=== PATIENT | male | born 1940 | race Caucasian/White ===

== ENCOUNTER 2017-03-21 15:58 | Emergency (ER) | payer OTHER, MEDICAID ==
[~2017-03-21] VITALS: Ht 165.1 cm; Wt 66.0 kg
--- NOTE | 2017-03-21 16:10 | NUR ---
AAOX3, BIB EMS C/O SYNCOPAL EPISODE AT HOME. SKIN IS WARM AND DRY. RESP IS EVEN AND UNLABORED WITH NAD NOTED. GENERALIZED WEAKNESS. ASSISTED TO HOSPITAL GOWN. PLACED ON MONITOR. DR CANCINO AT BS FOR EVAL.
[2017-03-21 16:23] LABS: BASOPHILS % (AUTO) 0.2 % (0.0-2.0); EOSINOPHILS # (AUTO) 0.1 /CMM (0.0-0.7); EOSINOPHILS % (AUTO) 0.8 % (0.0-6.0); HEMATOCRIT 43 % (39-51); HEMOGLOBIN 14.4 g/dL (13.5-17.5); LYMPHOCYTES # (AUTO) 0.4 /CMM (0.8-4.8); LYMPHOCYTES % (AUTO) 6.3 % (20.0-44.0); MEAN CORPUSCULAR HEMOGLOBIN 30 PG (26.0-33.0); MEAN CORPUSCULAR HGB CONC 34 g/dl (31.0-36.0); MEAN CORPUSCULAR VOLUME 88 fL (80-96); MONOCYTES # (AUTO) 0.5 /CMM (0.1-1.30); MONOCYTES % (AUTO) 7.2 % (2.0-12.0); NEUTROPHILS # (AUTO) 5.8 /CMM (1.8-8.9); NEUTROPHILS % (AUTO) 85.5 % (43.0-81.0); PLATELET COUNT (AUTO) 195 /CMM (150-450); RDW COEFFICIENT OF VARIATION 12.5 (11.5-15.0); RED BLOOD CELL COUNT(AUTO) 4.83 MIL/uL (4.5-6.0); WHITE BLOOD COUNT (AUTO) 6.8 K/uL (4.3-11.0)
[2017-03-21] MEDS ORDERED: IV NS 0.9% 500 ML BAG IV ONE (16:30)
[2017-03-21 16:33] LABS: CALCIUM, SERUM 9.1 mg/dL (8.5-10.1); CARBON DIOXIDE 26 mmol/L (21-32); CHLORIDE 98 mmol/L (98-107); CREATININE 0.7 mg/dL (0.6-1.3); GLUCOSE 283 mg/dL (74-106); POTASSIUM 4.2 mmol/L (3.5-5.1); SODIUM SERUM 134 mmol/L (136-145); UREA NITROGEN, BLOOD 11 mg/dL (7-18)
[2017-03-21 16:39] LABS: ALANINE AMINOTRANSFERASE 30 U/L (12-78); ALBUMIN 4.1 g/dL (3.4-5.0); ALCOHOL, BLOOD < 3 mg/dL (0-0); ALKALINE PHOSPHATASE 61 U/L (46-116); ASPARTATE AMINOTRANSFERASE 25 U/L (15-37); BILIRUBIN,DIRECT 0.2 mg/dL (0.0-0.2); BILIRUBIN,TOTAL 1.1 mg/dL (0.2-1.0); TOTAL PROTEIN, SERUM 7.7 g/dL (6.4-8.2)
[2017-03-21 16:41] LABS: TROPONIN I < 0.017 ng/mL (0.00-0.056)
[2017-03-21 16:55] LABS: SERUM AMMONIA 19 umol/L (11-32)
[2017-03-21 16:58] LABS: INR 1.09 (0.87-1.13); PROTHROMBIN TIME 11.3 SECS (9.5-12.7)
--- NOTE | 2017-03-21 17:10 | NUR ---
CALLING [facility] FOR TRANSFER
--- NOTE | 2017-03-21 17:16 | NUR ---
CEVALLOS WILL CALL BACK FOR REPORT
[2017-03-21 17:24] LABS: APPEARANCE,URINE CLEAR (CLEAR); BILIRUBIN,URINE NEGATIVE (NEGATIVE); BLOOD, URINE NEGATIVE Ery/uL (NEGATIVE); COLOR,URINE YELLOW (YELLOW); KETONES,URINE 2+ (NEGATIVE); LEUKOCYTE ESTERASE ,URINE NEGATIVE (NEGATIVE); NITRITE, URINE NEGATIVE (NEGATIVE); PH,URINE 7.5 (5.0-8.0); PROTEIN,URINE NEGATIVE (NEGATIVE); UGLUCOSE 3+ mg/dL (NEGATIVE); UROBILINOGEN,URINE 0.2 EU/dL (0.2)
[2017-03-21 17:30] LABS: THYROID STIMULATING HORMONE 0.801 uIU/mL (0.358-3.74)
[2017-03-21] MEDS ORDERED: INSULIN REGULAR, HUMAN 100 UNIT/ML 10 ML VIAL SQ ONE (17:30)
[2017-03-21 17:32] LABS: BACTERIA,URINE Rare /HPF (None Seen); RBC,URINE 0-2 /HPF (0-2); SQUAMOUS EPITHELIAL CELL,UR Few /HPF (None Seen)
[2017-03-21] MEDS ORDERED: INSULIN REGULAR, HUMAN 100 UNIT/ML 10 ML VIAL ONE (18:15)
--- NOTE | 2017-03-21 18:23 | NUR ---
INSULIN 6 UNITS GIVEN BY PRIMARY NURSE STEFAN. DOSE VERIFIED.
--- NOTE | 2017-03-21 19:16 | NUR ---
ASSUMED CARE. RECEIVED REPORT FROM AM SHIFT RN STEFAN. PT AAOX4 NO ACUTE DISTRESS NOTED, RESP EVEN AND UNLABORED. PT ON CARDIAC MONITORING, CONTINUOUS POX. PT AT BEDSIDE.
[2017-03-21] MEDS ORDERED: IV NS 0.9% 1,000 ML BAG IV ONE (19:30)
--- NOTE | 2017-03-21 20:10 | NUR ---
PATIENT BEING TRANSFERRED TO [facility] - ADMITTING DR ROSS [facility] ETA 2230 REPORT NUMBER [phone]
--- NOTE | 2017-03-21 20:30 | NUR ---
[facility] ETA 2100 PER [facility].
[2017-03-21 20:48] VITALS: BP 155/69
--- NOTE | 2017-03-21 20:48 | NUR ---
REPORT CALLED TO [facility]. [facility] AT BEDSIDE. REPORT GIVEN TO JD.
== END 2017-03-21 21:12 | disposition short-term general hospital (02) ==
LOC: ER 16:00
DX: S09.90XA Unspecified injury of head, initial encounter (principal); R41.82 Altered mental status, unspecified; R53.1 Weakness; I10 Essential (primary) hypertension; E11.9 Type 2 diabetes mellitus without complications; W06.XXXA Fall from bed, initial encounter; Y93.89 Activity, other specified; Y92.89 Other specified places as the place of occurrence of the external cause; Y99.8 Other external cause status
CPT/HCPCS: 36415; 70450; 71010; 80048; 80076; 81001; 82140; 82962; 84443; 84484; 85025; 85730; 93005; 96372; 99285; A4606; G0480; J1815; J7040; 81000-TC; Z7610

== ENCOUNTER 2021-08-28 16:56 | Emergency (ER) | payer OTHER ==
[~2021-08-28] VITALS: Ht 165.1 cm; Wt 63.5 kg
--- NOTE | 2021-08-28 17:05 | NUR ---
DR PEDROZA AT BEDSIDE
--- NOTE | 2021-08-28 17:05 | NUR ---
DORE[facility] RA78 FRM HOME "GENERALIZED WEAKNESS, NOT TAKING MEDICATIONS & FAILURE TO THRIVE". TO ER BED 3, HOOKED TO MONITOR, CHANGED TO HOSP GOWN,W ARM BLANKET PROVIDED. PATIENT AAO x1. BREATHING EVEN AND UNLABORED. AWAITING MD BOYD
--- NOTE | 2021-08-28 17:20 | NUR ---
PHLEB AT BEDSIDE
[2021-08-28] MEDS ORDERED: IV NS 0.9% 1,000 ML BAG IV ONE ×2 (17:30→23:30)
[2021-08-28 17:41] LABS: BASOPHILS # (AUTO) 0.1 K/uL (0.0-0.2); BASOPHILS % (AUTO) 0.3 % (0.0-2.0); EOSINOPHILS % (AUTO) 0.2 % (0.0-6.0); HEMATOCRIT 38 % (39-51); HEMOGLOBIN 13.1 g/dL (13.5-17.5); MEAN CORPUSCULAR HGB CONC 35 g/dl (31.0-36.0); MEAN CORPUSCULAR VOLUME 86 fL (80-96); MONOCYTES # (AUTO) 1.3 K/uL (0.1-1.30); MONOCYTES % (AUTO) 7.8 % (2.0-12.0); NEUTROPHILS # (AUTO) 14.1 K/uL (1.8-8.9); NEUTROPHILS % (AUTO) 85.7 % (43.0-81.0); PLATELET COUNT (AUTO) 219 K/uL (150-450); RED BLOOD CELL COUNT(AUTO) 4.43 MIL/uL (4.5-6.0); WHITE BLOOD COUNT (AUTO) 16.5 K/uL (4.3-11.0)
--- NOTE | 2021-08-28 18:43 | NUR ---
CALLED [facility] AND OPENED UP THE CASE FOR PT
[2021-08-28 18:45] LABS: ALANINE AMINOTRANSFERASE 72 U/L (12-78); ALBUMIN 2.9 g/dL (3.4-5.0); ALKALINE PHOSPHATASE 116 U/L (46-116); ASPARTATE AMINOTRANSFERASE 72 U/L (15-37); BILIRUBIN,DIRECT 0.5 mg/dL (0.0-0.2); BILIRUBIN,TOTAL 1.1 mg/dL (0.2-1.0); CHLORIDE 92 mmol/L (98-107); CREATININE 1.1 mg/dL (0.6-1.3); LIPASE 59 U/L (73-393); POTASSIUM 3.9 mmol/L (3.5-5.1); SODIUM SERUM 127 mmol/L (136-145); TOTAL PROTEIN, SERUM 7.4 g/dL (6.4-8.2); UREA NITROGEN, BLOOD 14 mg/dL (7-18)
[2021-08-28 19:14] LABS: GLUCOSE 448 mg/dL (74-106)
--- NOTE | 2021-08-28 19:34 | NUR ---
REPORT RECEIVED FROM BOBY MILES FOR [facility]
--- NOTE | 2021-08-28 19:34 | NUR ---
PATIENT NOT ABLE TO PROVIDE URINE SAMPLE. MADE MD AWARE
--- NOTE | 2021-08-28 19:49 | NUR ---
PT IS RESTING COMFORTABLY IN BED , WARM BLANKETS PROVIDED. DAUGHTER AT BEDSIDE. WILL CONTINUE TO MONITOR.
--- NOTE | 2021-08-28 19:58 | NUR ---
URINE SAMPLE COLLECTED AND SENT TO LAB
[2021-08-28] MEDS ORDERED: POTASSIUM CHLORIDE 20 MEQ TAB.PRT.SR PO ONE ×2 (20:00→20:05)
[2021-08-28] MEDS ORDERED: INSULIN REGULAR, HUMAN 100 UNIT/ML 10 ML VIAL SQ ONE (20:00)
[2021-08-28] MEDS ORDERED: INSULIN REGULAR, HUMAN 100 UNIT/ML 10 ML VIAL ONE (20:06)
[2021-08-28 20:19] LABS: BILIRUBIN,URINE NEGATIVE (NEGATIVE); COLOR,URINE YELLOW (YELLOW); LEUKOCYTE ESTERASE ,URINE NEGATIVE (NEGATIVE); NITRITE, URINE NEGATIVE (NEGATIVE); PH,URINE 5.5 (5.0-8.0); PROTEIN,URINE NEGATIVE (NEGATIVE); UGLUCOSE >=1000 mg/dL (NEGATIVE); UROBILINOGEN,URINE 0.2 EU/dL (0.2)
[2021-08-28 20:36] LABS: BACTERIA,URINE Rare /HPF (None Seen); RBC,URINE 51-80 /HPF (0-2); SQUAMOUS EPITHELIAL CELL,UR Rare /HPF (None Seen)
[2021-08-28 20:43] LABS: CALCIUM, SERUM 9.5 mg/dL (8.5-10.1); CARBON DIOXIDE 19 mmol/L (21-32)
--- NOTE | 2021-08-28 20:53 | NUR ---
LAB AT BEDSIDE
--- NOTE | 2021-08-28 20:55 | NUR ---
[facility] . DR ASTUDILLO
--- NOTE | 2021-08-28 21:13 | NUR ---
DR PEDROZA ON THE PHONE WITH DR ASTUDILLO FROM [place]
[2021-08-28 21:39] LABS: CALCIUM, SERUM 8.3 mg/dL (8.5-10.1); CARBON DIOXIDE 24 mmol/L (21-32); CHLORIDE 97 mmol/L (98-107); CREATININE 0.9 mg/dL (0.6-1.3); GLUCOSE 294 mg/dL (74-106); POTASSIUM 3.8 mmol/L (3.5-5.1); SODIUM SERUM 131 mmol/L (136-145); UREA NITROGEN, BLOOD 12 mg/dL (7-18)
[2021-08-28] MEDS ORDERED: ACETAMINOPHEN 325 MG TABLET ONE (23:00)
--- NOTE | 2021-08-28 23:22 | NUR ---
LAB AT BEDSIDE
[2021-08-28] MEDS ORDERED: PIPERACILLIN /TAZOBACTAM 3.375 G VIAL IV ONE (23:25)
[2021-08-28] MEDS ORDERED: VANCOMYCIN 1 GM VIAL ONE (23:25)
[2021-08-28] MEDS ORDERED: ACETAMINOPHEN 325 MG TABLET PO ONE (23:30)
[2021-08-28] MEDS ORDERED: PIPERACILLIN /TAZOBACTAM 3.375 G in IV D5W 50 ML IV ONE (23:30)
[2021-08-28] MEDS ORDERED: VANCOMYCIN 1 GM in IV D5W 250 ML IV ONE (23:30)
[2021-08-28] MEDS ORDERED: LIDOCAINE 1%-EPI 1:100,000 20 ML VIAL ONE (23:55)
[2021-08-29] MEDS ORDERED: LIDOCAINE 1%-EPI 1:100,000 20 ML VIAL TP ONE
--- NOTE | 2021-08-29 | NUR ---
DR CONTE AT BED SIDE PERFORMIN I&D ON R POSTERIOR SHOULDER INFECTED WOUND
--- NOTE | 2021-08-29 00:24 | NUR ---
CALLED [facility] PER DR CONTE'S ORDER
--- NOTE | 2021-08-29 01:35 | NUR ---
CALLED [facility] FOR THE FIFTH TIME AND ASKED FOR AN ETA. INFORMED MANOHAR THAT THE PATIENT HAS BEEN HER FOR MORE THAN 8 HOURS AND IF THEY CAN NOT PROVIDE US WITH AN ETA, WE HABE TO PROCEED WITH ADMITTING THE PATIENT AT THE HOSPITAL. AWAITING FOR A FEEDBACK
--- NOTE | 2021-08-29 02:08 | NUR ---
FRANKIE GOT ACCEPTED AT [facility] BY [facility] ETA: 0300 # FOR REPORT: [phone]
--- NOTE | 2021-08-29 02:31 | NUR ---
TRANSPORTATION UPDATE: [id number] # FOR REPORT: [phone]
--- NOTE | 2021-08-29 02:47 | NUR ---
REPORT GIVEN TO JORGE MILES FOR [facility]
--- NOTE | 2021-08-29 02:51 | NUR ---
[facility] ARRIVED FOR [facility] PRESS OPERATOR, REPORT GIVEN TO RECORD PRESSMAN
[2021-08-29 02:53] VITALS: BP 132/77
--- NOTE | 2021-08-29 03:12 | NUR ---
PATIENT WAS TRANSFERRED TO [facility] UNDER ACLS Addendum: 08/29/21 at 0314 by UZA[facility]
== END 2021-08-29 03:14 | disposition short-term general hospital (02) ==
LOC: ER 16:58
DX: A41.9 Sepsis, unspecified organism (principal); L03.113 Cellulitis of right upper limb; E11.10 Type 2 diabetes mellitus with ketoacidosis without coma; Z20.822 Contact with and (suspected) exposure to COVID-19; Z91.14 Patient's other noncompliance with medication regimen; Z79.4 Long term (current) use of insulin; Z86.73 Personal history of transient ischemic attack (TIA), and cerebral infarction without residual deficits; I10 Essential (primary) hypertension; R53.1 Weakness
CPT/HCPCS: 10060; 36415 ×2; 71045; 80048 ×2; 80076; 81001; 82010; 82962 ×2; 83605 ×2; 83690; 84145; 84484 ×2; 85025; 87040 ×2; 87426; 96361; 96365; 96367; 96372; 99291; 99292; C9803; J1815; J2543; J3370; J3490; J7030 ×2; J7060

== ENCOUNTER → 2025-04-04 | Emergency (ER) | payer OTHER, MEDICAID ==
[~2025-04-04] VITALS: Ht 165.1 cm; Wt 50.3 kg
[~2025-04-04] MED LIST: CEFTRIAXONE 1GM BAG (ER ONLY) 50 ML IV ONE
[2025-04-04 16:19] LABS: PLATELET COUNT (AUTO) 242 K/uL (150-450); RED BLOOD CELL COUNT(AUTO) 3.80 MIL/uL (4.5-6.0); RED CELL DISTRIBUTION WIDTH 19.8 % (11.5-15.0); WHITE BLOOD COUNT (AUTO) 6.6 K/uL (4.3-11.0)
[2025-04-04 16:27] LABS: CALCIUM, SERUM 8.4 mg/dL (8.5-10.1); CREATININE 0.7 mg/dL (0.6-1.3); SODIUM SERUM 140 mmol/L (136-145); UREA NITROGEN, BLOOD 16 mg/dL (7-18)
[2025-04-04] MEDS: IV NS 0.9% 1,000 ML IV ONE (16:30)
[2025-04-04 16:33] LABS: INR 1.25 (0.91-1.10); LACTIC ACID 1.4 mmol/L (0.4-2.0)
[2025-04-04 16:38] LABS: ASPARTATE AMINOTRANSFERASE 24 U/L (15-37); TOTAL PROTEIN, SERUM 6.8 g/dL (6.4-8.2)
[2025-04-04] MEDS: IV NS 0.9% 1,000 ML BAG IV ONE (16:59)
[2025-04-04 18:07] LABS: APPEARANCE,URINE CLEAR (CLEAR); BLOOD, URINE 1+ Ery/uL (NEGATIVE); LEUKOCYTE ESTERASE ,URINE NEGATIVE (NEGATIVE); NITRITE, URINE POSITIVE (NEGATIVE); UGLUCOSE NEGATIVE (NEGATIVE)
[2025-04-04 18:11] LABS: ADD URINE CULTURE YES; CALCIUM OXALATE CRYSTALS,UR Few /HPF (None Seen); SQUAMOUS EPITHELIAL CELL,UR Rare /HPF (None Seen)
[2025-04-04] MEDS: CEFTRIAXONE 1 G in IV D5W 50 ML IV ONE (19:12)
[2025-04-04 22:08] VITALS: BP 125/77; TEMP 97.9; O2SAT 94
== END | disposition short-term general hospital (02) ==
LOC: ER 13:51
DX: R41.82 Altered mental status, unspecified (principal); N39.0 Urinary tract infection, site not specified; K82.8 Other specified diseases of gallbladder; I11.9 Hypertensive heart disease without heart failure; E11.9 Type 2 diabetes mellitus without complications; F03.90 Unspecified dementia, unspecified severity, without behavioral disturbance, psychotic disturbance, mood disturbance, and anxiety; R17 Unspecified jaundice; Z86.73 Personal history of transient ischemic attack (TIA), and cerebral infarction without residual deficits
CPT/HCPCS: 99285; 96365; 76705; 70450; 71045; 96361; 93005; 85025; 80048; 87086; 83605; 80076; 81001; 36415; 84443; 84484; 85730; J0696 ×2; J7060; J7030